=== PATIENT | male | born 1960 | race African-American/Black ===

== ENCOUNTER 2020-03-14 12:19 | Outpatient (CLI) | payer BC ==
--- NOTE | 2020-03-14 14:18 | RAD ---
RIGHT FOOT THREE VIEWS: History: Right foot pain for two months, medially. FINDINGS: Severe osteoarthrosis changes of the first metacarpal phalangeal joint with some hypertrophic osteoph ytosis and joint space narrowing. Enthesophytic changes with some ossification within the calcaneal A chille's tendon insertion. No evidence for acute fracture or dislocation. IMPRESSION: Osteoarthrosis and degenerative changes as above. POS: [facility]
== END 2020-03-14 12:20 | disposition home or self-care (01) ==
LOC: BICRAD 12:19
PROVIDERS: ATTEND Family Medicine
DX: M79.671 Pain in right foot (principal); M19.071 Primary osteoarthritis, right ankle and foot
CPT/HCPCS: 36415; 80053; 80061; 81001; 84550; 85025